=== PATIENT | female | born 1960 | race Caucasian/White ===

== ENCOUNTER 2020-02-20 12:29 | Outpatient (CLI) | payer OTHER, SELFPAY ==
--- NOTE | 2020-02-20 12:59 | MM_ITS ---
WS: [id number] BILATERAL DIGITAL SCREENING MAMMOGRAM WITH CAD CLINICAL INFORMATION: SCREENING HISTORY: Screening mammogram. No current complaints. COMPARISON: October 20, 2018 TECHNIQUE: Bilateral CC and MLO views. FINDINGS: Fatty-replaced breasts bilaterally. No suspicious focal mass, asymmetry, calcifications, or java software architect ural distortion. No evidence of malignancy. MM/[place] [id number] IMPRESSION: BI-RADS: 1-Negative FOLLOW UP: 1 Year Follow-up Recommend return to annual screening mammography.
== END 2020-02-20 12:30 | disposition home or self-care (01) ==
LOC: RADSHAW 12:36
PROVIDERS: PCP Nurse Practitioner; Visit Provider Nurse Practitioner
DX: Z12.31 Encounter for screening mammogram for malignant neoplasm of breast (principal)
CPT/HCPCS: 77067

== ENCOUNTER 2021-02-19 13:45 | Outpatient (CLI) | payer OTHER, SELFPAY ==
--- NOTE | 2021-02-19 14:00 | MM_ITS ---
WS: [id number] BILATERAL DIGITAL SCREENING MAMMOGRAM WITH CAD CLINICAL INFORMATION: SCREENING HISTORY: Screening mammogram. No current complaints. COMPARISON: February 20, 2020 TECHNIQUE: Bilateral CC and MLO views. FINDINGS: Fatty-replaced breasts bilaterally. No suspicious focal mass, asymmetry, calcifications, or architectural modeler ural distortion. No evidence of malignancy. A few punctate calcifications left breast. MM/[place] [id number] IMPRESSION: BI-RADS: 2-Benign FOLLOW UP: 1 Year Follow-up Recommend return to annual screening mammography.
== END 2021-02-19 13:46 | disposition home or self-care (01) ==
LOC: RADSHAW 13:54
PROVIDERS: PCP Nurse Practitioner; Visit Provider Nurse Practitioner
DX: Z12.31 Encounter for screening mammogram for malignant neoplasm of breast (principal)
CPT/HCPCS: 77067

== ENCOUNTER 2021-03-12 11:57 | Emergency (ER) | payer SELFPAY ==
[2021-03-12 12:38] VITALS: BP 197/105; PULSE 93; RESP 20; TEMP 36.9; O2SAT 95; BMI 51.7
--- NOTE | 2021-03-12 12:49 | W.ED.ABDPA2 ---
Documented by User: ZABRINA Saul 03/12/21 16:03 HPI - Abdominal Pain General: Chief Complaint: Abdominal Pain Stated Complaint: Abdominal Pain Time Seen by Provider: 03/12/21 12:44 Source: patient and family Mode of arrival: wheelchair Limitations: no limitations History of Present Illness: HPI narrative: Patient is a nice 60-year-old female who presents to ED today with a complaint of diffuse abdominal pain that started around 8 AM this morning after she had awoke. Patient tells me all day yesterday and throughout the night she felt normal. She states since abdominal pain started she has had a total of 7 episodes of non-bloody emesis. She states she normally has a bowel movement every morning but was not able to this morning. She states upon arrival to the ED she was able to have one but stated it was looser than normal. She did not notice any bloody or dark color. She has not been running fevers. No bad food exposures. No recent antibiotic use. Previous abdominal surgeries include one section. MD elicited complaint: abdominal pain Pertinent past history: none Onset (ago): hour(s) Pain Consistency: constant Location: Diffuse Severity: severe Quality: cramping Radiation: none Migration to: no migration Exacerbating factors: nothing Relieving factors: bowel movement Associated Symptoms: Reports nausea and vomiting; Denies chills, dysuria, fever(s), hematochezia, hematemesis and melena Related Data: Patient : No Review of Systems Const: Denies: fever(s), chills, body aches, change in weight, fatigue or malaise Card: Denies: chest pain Resp: Denies: dyspnea GI: Reports: abdominal pain, nausea and vomiting; Denies: hematemesis, pain on defecation, rectal pain, rectal swelling, hematochezia or melena : Denies: flank pain or dysuria Musc: Denies: back pain Skin/Breast: Denies: rash Neuro: Denies: headache(s) [facility] ED PFSH: Medical History (Updated 03/20/21 @ 00:01 by ) HTN, goal below 140/80 Morbid obesity with BMI of 50.0-59.9, adult Surgical History (Updated 11/13/20 @ 09:22 by CLEVE Cao) History of cataract surgery left 1987 History of section 1988 Family History (Updated 11/13/20 @ 09:24 by CLEVE Cao) Mother Cancer Breast and colon Grandmother Cancer Breast Father Diabetes Heart disease Stroke Social History Smoking and tobacco status: never smoked Second hand smoke exposure: No Smoking risk assessment/counseling performed?: No Alcohol intake: never Desire information about alcohol rehabilitation?: No Counseling given: No Desire information about substance/drug rehabilitation?: No Counseling given: No Adopted: No Caregiver/support person: Yes Lives independently: No Household members: spouse Housing: House Marital status: Number of children: 2 service: No Current occupational status: employed Current occupation: Self History of recent travel: No Current gender identity: Female Physical Exam Const: COMMON NORMALS: no acute distress, patient oriented x3 and alert GENERAL APPEARANCE: cooperative and in distress (looks like she doesn't feel well) NUTRITIONAL APPEARANCE: obese morbidly obese (BMI > 51) ORIENTATION/CONSCIOUSNESS: Yes awake, Yes oriented to person, Yes oriented to place and Yes oriented to time HENMT: COMMON NORMALS: normocephalic and atraumatic HEAD & SCALP: normocephalic and atraumatic Resp: COMMON NORMALS: normal respiratory effort and clear to auscultation bilaterally AUSCULTATION: clear to auscultation bilaterally Cardio: COMMON NORMALS: regular rate and regular rhythm RATE: regular rate RHYTHM: regular rhythm GI: COMMON NORMALS: Normal to inspection, nondistended, normoactive bowel sounds present, Soft to palpation, No hepatosplenomegaly present and no masses AUSCULTATION: Yes normoactive bowel sounds PALPATION: Yes Soft to palpation, Yes Tenderness to palpation present (GI) (diffusely) and Yes No hepatosplenomegaly present OTHER: exam severely limited by body habitus Neuro: COMMON NORMALS: patient oriented x3 SENSORIUM/ORIENTATION: Yes alert, Yes oriented to person, Yes oriented to place and Yes oriented to time Skin: COMMON NORMALS: no rashes or lesions noted GENERAL SKIN EXAM: no rashes or lesions noted Course Vital Signs: Vital signs: Vital Signs Temperature 98.4 F 03/12/21 12:38 Pulse Rate 81 03/12/21 16:13 Respiratory Rate 15 03/12/21 16:13 Blood Pressure 205/113 03/12/21 16:13 Pulse Oximetry 96 03/12/21 16:13 MDM - Abdominal Pain MDM Narrative: Medical decision making narrative: Patient feels better here. She has not had any abnormal stools or vomiting throughout her visit. Labs are overall unremarkable. She does have minor elevations to her LFTs most likely consistent with a fatty liver. Gallbladder ultrasound was obtained and found to be normal. CT of her abdomen showing enteritis versus possible developing small bowel obstruction. Patient will be discharged home with nausea medications and recommendations of a clear bland liquid diet over the next 48 hours and advance as tolerated. Strict return to ED precautions were given. Case discussed with Dr. Taylor who agrees with evaluation and plan. Lab Data: Labs: Lab Results 03/12/21 03/12/21 03/12/21 Range/Units 12:50 13:32 13:35 WBC 11.1 H (4.0-10.0) 10^3/ uL RBC 4.98 (4.1-5.3) 10^6/u L Hgb 15.0 (11.5-15.3) g/dL Hct 45.0 (37.0-47.0) % MCV 90.4 (81-99) fL MCH 30.1 (28.0-34.0) pg MCHC 33.3 (30.0-36.0) g/dL RDW 13.2 (12.1-15.1) % Plt Count 208 (130-400) 10^3/c mm MPV 12.1 H (7.4-10.4) fL Neut % (Auto) 89.5 % Lymph % (Auto) 6.3 % [place] % (Auto) 3.4 % Eos % (Auto) 0.0 % Baso % (Auto) 0.5 % Neut # (Auto) 9.93 H (1.8-7.7) 10^3/u L Lymph # (Auto) 0.7 L (0.8-4.8) 10^3/u L [place] # (Auto) 0.4 (0.2-0.9) 10^3/u L Eos # (Auto) 0.0 (0.0-0.8) 10^3/u L Baso # (Auto) 0.1 (0.0-0.1) 10^3/u L Nucleated RBC % (a uto) 0 % Nucleated RBCs # 0.0 /100WBC Sodium 138 (136-145) mmol/L Potassium 3.7 (3.5-5.1) mmol/L Chloride 101 (98-107) mmol/L Carbon Dioxide 26 (22-29) mmol/L Anion Gap 14.7 (5-19) BUN 10 (8-23) mg/dL Creatinine 0.6 (0.5-0.9) mg/dL GFR Calculation 102.0 (90-130) mL/min Glucose 144 H (65-115) mg/dL Calculated Osmolal ity 288 (285-295) mOsm/k g Calcium 9.6 (8.5-10.5) mg/dL Total Bilirubin 0.6 (0.15-1.2) mg/dL AST 67 H (0-32) U/L ALT 93 H (0-33) U/L Alkaline Phosphata se 120 H (35-105) IU/L Total Protein 6.9 (6.6-8.7) g/dL Albumin 4.0 (3.5-5.2) g/dL Globulin 2.9 (1.3-4.6) g/dL Lipase 18 (13-60) U/L Urine Color Yellow (Yellow) Urine Appearance Hazy A (CLEAR) Urine pH 7 (5-7) Ur Specific Gravit y 1.010 (1.005-1.030) Urine Protein Neg (Negative) Urine Glucose (UA) Norm (Normal) Urine Ketones Negative (Negative) Urine Blood 2+ H (Negative) Urine Nitrate Negative (Negative) Urine Bilirubin Neg (Negative) Urine Urobilinogen Norm (Negative) mg/dL Ur Leukocyte Alyssa ase Trace H (Negative) Urine RBC 5-10 H (0-2) /hpf Urine WBC 0-4 H (0-5) /hpf Ur Squamous Epith Cells 0-4 H (0-5) /hpf Amorphous Sediment Not Reportable Urine Bacteria 2+ H (NONE) /hpf Imaging Data ^: US gallbladder: Radiologist's impression: [address] [id number] ReportSigned Patient: Aubrie SpearZackdawson #: [id number]: 1Acct#:[id number]/Sex: 60 / FADM Date: 03/12/21Loc: ERRoom/Bed:Attending Dr: Ordering Provider/Ordering MD: Shae Ku Date of Service: 03/12/21 Procedure(s): US gall bladder [id number] Accession Number(s): [id number] Report Number: [id number] WS: [id number] ULTRASOUND ABDOMEN LIMITED CLINICAL INFORMATION: pain; elevated LFTs COMPARISON: None. FINDINGS: Technically difficult examination due to body habitus and bowel gas Liver Size: Mild hepatomegaly Craniocaudal length: 16.5 cm. Echogenicity: Heterogeneous Surface nodularity: None. Mass (size and location): None. Bile ducts Intrahepatic ducts: Normal. Common bile duct diameter: 0.4 cm. Gallbladder Normal. Gallstones: None. Gallbladder sludge: None. Gallbladder wall thickening: None. Pericholecystic fluid: None. Sonographic Perkins sign: Absent. Pancreas Not visualized Right kidney: Normal. Hydronephrosis: None. Size: 10.4 cm x 4.6 cm x 5.2 cm. Abdominal aorta and IVC Visualized portions are normal. Ascites: None. US/US gall bladder [id number] IMPRESSION: Technically difficult examination 1. Mild hepatomegaly with diffuse fatty infiltration. 2. Normal gallbladder. 3. No hydronephrosis in right kidney. 4. No ascites. Dictated By:Lucius Gerber MDSigned By:Lucius Gerber MDSigned Date/Time:03/12/21 1522DD/ 1520 CT Abd/Pel: Radiologist's impression: [address] [id number] Scan ReportSigned Patient: Eloise Spear #: [id number]: 1960cct#:[id number]/Sex: 60 / FADM Date: 03/12/21Loc: ERRoom/Bed:Attending Dr: Ordering Provider/Ordering MD: Shae Ku Date of Service: 03/12/21 Procedure(s): CT abdomen pelvis w con* [id number] Accession Number(s): [id number] Report Number: [id number] WS: [id number] CT ABDOMEN PELVIS TECHNIQUE: Contrast-enhanced CT of the abdomen and pelvis with coronal and sagittal reformatted images. CLINICAL INFORMATION: diffuse abdominal pain; N/V/constipation COMPARISON: None. DLP: 1769.[address] scans at [facility] use at least one of these dose optimization techniques: automated exposure control; mA and/or kV adjustment per patient size (includes targeted exams where dose is matched to clinical indication); or iterative reconstruction. FINDINGS: A few prominent fluid-filled loops of small bowel in the midabdomen and right lower quadrant with a small amount of adjacent fluid and induration. A few associated air-fluid levels in normal caliber small bowel in the midabdomen with slight induration. Recommend correlation for small bowel enteritis versus developing small bowel obstruction. No evidence of high-grade obstruction. Mild hepatomegaly. Diffuse fatty infiltration of the liver. Normal gallbladder. Normal portal vein and splenic vein. Normal spleen. Normal GE junction. Fatty atrophy of the pancreas. Adrenal glands are normal. Normal renal parenchymal enhancement. No hydronephrosis. Bibasilar atelectasis. Normal caliber abdominal aorta. Mild aortic calcification. No abdominal or pelvic lymphadenopathy. Normal sigmoid colon. A few diverticuli. No evidence of acute diverticulitis. No evidence of small or large bowel obstruction. Calcified uterine fibroid. Small amount of free fluid in the pelvis. Tiny fat-containing umbilical hernia. CT/CT abdomen pelvis w con* [id number] IMPRESSION: 1. Mild diffuse fatty infiltration of the liver with mild hepatomegaly. 2. Normal gallbladder. 3. A few air-fluid levels in normal caliber small bowel in the midabdomen and right lower quadrant with slight induration. Recommend correlation for small bowel enteritis versus developing small bowel obstruction. 4. No evidence of high-grade obstruction. 5. No hydronephrosis in either kidney. 6. Small fat-containing umbilical hernia. 7. Small amount of free fluid in the pelvis. Dictated By:Lucius Gerber MDSigned By:Lucius Gerber MDSigned Date/Time:03/12/21 1535DD/ 1522 Discharge Plan Discharge Patient Disposition: Home Clinical Impression: Enteritis Condition: Stable Prescriptions: New Zofran 4 mg tablet 4 mg PO Q6H PRN (Reason: nausea and vomiting) Qty: 14 RF: 0 No Action multivitamin Tablet 1 tab PO QAM RF: 0 Aspir-81 81 mg Tablet,Delayed Release (Dr/Ec) 81 mg PO PRN RF: 0 metoprolol tartrate 100 mg tablet 100 mg PO BEDTIME RF: 0 Lasix 20 mg tablet 20 mg PO QAM RF: 0 lisinopril 40 mg tablet 40 mg PO BEDTIME RF: 0 Discharge Orders: Discharge ED (Routine); Ordered 03/12/21 Ordered By: Shae Ku Referrals: Laila Martines FNP-C [Primary Care Provider] - Patient Instructions: Bowel Obstruction (ED) Activity Restrictions/Additional Instructions: As we discussed your CT showed some inflammation to your small bowel versus a possible developing bowel obstruction. You do not have a bowel obstruction at this time however I have provided you patient instructions regarding this. As we discussed you need to do a bland liquid diet over the next 48 hours and slowly advance as tolerated. You need to return to the emergency department for severe or worsening abdominal pain, repetitive episodes of vomiting, fevers, severe diarrhea, or any other concerns you may have. Otherwise please follow-up with primary care in 3 to 5 days for reevaluation. Coding Level of Care Code ED Youth Probation Officer for Chg Fwd Exam Detailed Documented by User: Preston Taylor [place], [facility]21/21 12:29 HPI - Abdominal Pain General: Chief Complaint: Abdominal Pain Stated Complaint: Abdominal Pain Time Seen by Provider: 03/12/21 12:44 [facility] ED PFS: Medical History (Updated 03/20/21 @ 00:01 by ) HTN, goal below 140/80 Morbid obesity with BMI of 50.0-59.9, adult Surgical History (Updated 11/13/20 @ 09:22 by CLEVE Cao) History of cataract surgery left 1986 History of section 1988 Family History (Updated 11/13/20 @ 09:24 by CLEVE Cao) Mother Cancer Breast and colon Grandmother Cancer Breast Father Diabetes Heart disease Stroke Social History Smoking and tobacco status: never smoked Second hand smoke exposure: No Smoking risk assessment/counseling performed?: No Alcohol intake: never Desire information about alcohol rehabilitation?: No Counseling given: No Desire information about substance/drug rehabilitation?: No Counseling given: No Adopted: No Caregiver/support person: Yes Lives independently: No Household members: spouse Housing: House Marital status: Number of children: 2 service: No Current occupational status: employed Current occupation: Self History of recent travel: No Current gender identity: Female Course Vital Signs: Vital signs: Vital Signs Temperature 98.4 F 03/12/21 12:38 Pulse Rate 81 03/12/21 16:13 Respiratory Rate 15 03/12/21 16:13 Blood Pressure 205/113 03/12/21 16:13 Pulse Oximetry 96 03/12/21 16:13 MDM - Abdominal Pain MDM Narrative: Medical decision making narrative: Kindly review the physician's recreational assistant's note for a complete history and physical examination. I agree with her clinical findings and medical decision making. Lab Data: Labs: Lab Results 03/12/21 03/12/21 03/12/21 Range/Units 12:50 13:32 13:35 WBC 11.1 H (4.0-10.0) 10^3/ uL RBC 4.98 (4.1-5.3) 10^6/u L Hgb 15.0 (11.5-15.3) g/dL Hct 45.0 (37.0-47.0) % MCV 90.4 (81-99) fL MCH 30.1 (28.0-34.0) pg MCHC 33.3 (30.0-36.0) g/dL RDW 13.2 (12.1-15.1) % Plt Count 208 (130-400) 10^3/c mm MPV 12.1 H (7.4-10.4) fL Neut % (Auto) 89.5 % Lymph % (Auto) 6.3 % [place] % (Auto) 3.4 % Eos % (Auto) 0.0 % Baso % (Auto) 0.5 % Neut # (Auto) 9.93 H (1.8-7.7) 10^3/u L Lymph # (Auto) 0.7 L (0.8-4.8) 10^3/u L [place] # (Auto) 0.4 (0.2-0.9) 10^3/u L Eos # (Auto) 0.0 (0.0-0.8) 10^3/u L Baso # (Auto) 0.1 (0.0-0.1) 10^3/u L Nucleated RBC % (a uto) 0 % Nucleated RBCs # 0.0 /100WBC Sodium 138 (136-145) mmol/L Potassium 3.7 (3.5-5.1) mmol/L Chloride 101 (98-107) mmol/L Carbon Dioxide 26 (22-29) mmol/L Anion Gap 14.7 (5-19) BUN 10 (8-23) mg/dL Creatinine 0.6 (0.5-0.9) mg/dL GFR Calculation 102.0 (90-130) mL/min Glucose 144 H (65-115) mg/dL Calculated Osmolal ity 288 (285-295) mOsm/k g Calcium 9.6 (8.5-10.5) mg/dL Total Bilirubin 0.6 (0.15-1.2) mg/dL AST 67 H (0-32) U/L ALT 93 H (0-33) U/L Alkaline Phosphata se 120 H (35-105) IU/L Total Protein 6.9 (6.6-8.7) g/dL Albumin 4.0 (3.5-5.2) g/dL Globulin 2.9 (1.3-4.6) g/dL Lipase 18 (13-60) U/L Urine Color Yellow (Yellow) Urine Appearance Hazy A (CLEAR) Urine pH 7 (5-7) Ur Specific Gravit y 1.010 (1.005-1.030) Urine Protein Neg (Negative) Urine Glucose (UA) Norm (Normal) Urine Ketones Negative (Negative) Urine Blood 2+ H (Negative) Urine Nitrate Negative (Negative) Urine Bilirubin Neg (Negative) Urine Urobilinogen Norm (Negative) mg/dL Ur Leukocyte Alyssa ase Trace H (Negative) Urine RBC 5-10 H (0-2) /hpf Urine WBC 0-4 H (0-5) /hpf Ur Squamous Epith Cells 0-4 H (0-5) /hpf Amorphous Sediment Not Reportable Urine Bacteria 2+ H (NONE) /hpf Discharge Plan Discharge Patient Disposition: Home Clinical Impression: Enteritis Condition: Stable Prescriptions: New Zofran 4 mg tablet 4 mg PO Q6H PRN (Reason: nausea and vomiting) Qty: 14 RF: 0 No Action multivitamin Tablet 1 tab PO QAM RF: 0 Aspir-81 81 mg Tablet,Delayed Release (Dr/Ec) 81 mg PO PRN RF: 0 metoprolol tartrate 100 mg tablet 100 mg PO BEDTIME RF: 0 Lasix 20 mg tablet 20 mg PO QAM RF: 0 lisinopril 40 mg tablet 40 mg PO BEDTIME RF: 0 Discharge Orders: Discharge ED (Routine); Ordered 03/12/21 Ordered By: Shae Ku Referrals: Laila Martines, [facility] [Primary Care Provider] - Patient Instructions: Bowel Obstruction (ED) Activity Restrictions/Additional Instructions: As we discussed your CT showed some inflammation to your small bowel versus a possible developing bowel obstruction. You do not have a bowel obstruction at this time however I have provided you patient instructions regarding this. As we discussed you need to do a bland liquid diet over the next 48 hours and slowly advance as tolerated. You need to return to the emergency department for severe or worsening abdominal pain, repetitive episodes of vomiting, fevers, severe diarrhea, or any other concerns you may have. Otherwise please follow-up with primary care in 3 to 5 days for reevaluation. Coding Level of Care Code ED Youth Probation Officer for Maureen Fwd Exam Detailed
--- NOTE | 2021-03-12 12:59 | CT_ITS ---
WS: [id number] CT ABDOMEN PELVIS TECHNIQUE: Contrast-enhanced CT of the abdomen and pelvis with coronal and sagittal reformatted image s. CLINICAL INFORMATION: diffuse abdominal pain; N/V/constipation COMPARISON: None. DLP: 1769.[address] scans at [facility] use at least one of these dose optimization techniques: automat ed exposure control; mA and/or kV adjustment per patient size (includes targeted exams where dose is matched to clinical indication); or iterative reconstruction. FINDINGS: A few prominent fluid-filled loops of small bowel in the midabdomen and right lower quadran t with a small amount of adjacent fluid and induration. A few associated air-fluid levels in normal c aliber small bowel in the midabdomen with slight induration. Recommend correlation for small bowel en teritis versus developing small bowel obstruction. No evidence of high-grade obstruction. Mild hepatomegaly. Diffuse fatty infiltration of the liver. Normal gallbladder. Normal portal vein an d splenic vein. Normal spleen. Normal GE junction. Fatty atrophy of the pancreas. Adrenal glands are normal. Normal renal parenchymal enhancement. No hydronephrosis. Bibasilar atelectasis. Normal caliber abdominal aorta. Mild aortic calcification. No abdominal or pelvic lymphadenopathy. No rmal sigmoid colon. A few diverticuli. No evidence of acute diverticulitis. No evidence of small or l arge bowel obstruction. Calcified uterine fibroid. Small amount of free fluid in the pelvis. Tiny fat -containing umbilical hernia. CT/CT abdomen pelvis w con* [id number] IMPRESSION: 1. Mild diffuse fatty infiltration of the liver with mild hepatomegaly. 2. Normal gallbladder. 3. A few air-fluid levels in normal caliber small bowel in the midabdomen and right lower quadrant with slight induration. Recommend correlation for small damion wel enteritis versus developing small bowel obstruction. 4. No evidence of high-grade obstruction. 5. No hydronephrosis in either kidney. 6. Small fat-containing umbilical hernia. 7. Small amount of free fluid in the pelvis.
[2021-03-12 13:13] VITALS: BP 229/103; PULSE 88; RESP 18; O2SAT 97
[2021-03-12 13:26] LABS: Add Urine Microscopic? YES; Bacteria Urine 2+ /hpf; Bilirubin Urine Neg (Negative); Blood Urine 2+ (Negative); Glucose Urine UA Norm (Normal); Ketones Urine Negative (Negative); Leukocyte Esterase Urine Trace (Negative); Nitrate Urine Negative (Negative); Protein Urine Neg (Negative); Squamous Epithelial Cell Urine 0-4 /hpf (0-5); Urine Appearance Hazy (CLEAR); Urine Color Yellow (Yellow); Urobilinogen Urine Norm (Negative); WBC Urine 0-4 /hpf (0-5); pH Urine 7 (5-7)
[2021-03-12 13:27] LABS: Add Urine Culture? Yes
[2021-03-12 13:46] LABS: Basophils # 0.1 10^3/uL (0.0-0.1); Basophils % 0.5 %; Lymphocytes # 0.7 10^3/uL (0.8-4.8); Lymphocytes % 6.3 %; Mean Corpuscular HGB Conc 33.3 g/dL (30.0-36.0); Mean Corpuscular Hemoglobin 30.1 pg (28.0-34.0); Mean Corpuscular Volume 90.4 fL (81-99); Mean Platelet Volume 12.1 fL (7.4-10.4); Monocytes # 0.4 10^3/uL (0.2-0.9); Monocytes % 3.4 %; Neutrophils # 9.93 10^3/uL (1.8-7.7); Neutrophils % 89.5 %; Nucleated Red Blood Cells % 0 %; Platelet Count 208 10^3/cmm (130-400); Red Blood Count 4.98 10^6/uL (4.1-5.3); Red Cell Distribution Width 13.2 % (12.1-15.1); White Blood Count 11.1 10^3/uL (4.0-10.0)
[2021-03-12] MEDS: ondansetron 2 mg/ML SDV 2 mL 4 MG IVP (13:52)
[2021-03-12] MEDS: morphine 4 mg/mL SDV 1 mL IVP (13:56)
[2021-03-12 14:04] LABS: Alanine Aminotransferase 93 U/L (0-33); Alkaline Phosphatase 120 IU/L (35-105); Anion Gap 14.7 (5-19); Aspartate Amino Transferase 67 U/L (0-32); Blood Urea Nitrogen 10 mg/dL (8-23); Calcium 9.6 mg/dL (8.5-10.5); Carbon Dioxide 26 mmol/L (22-29); Chloride 101 mmol/L (98-107); Globulin 2.9 g/dL (1.3-4.6); Glucose 144 mg/dL (65-115); Lipase 18 U/L (13-60); Osmolality Calculated 288 mOsm/kg (285-295); Potassium 3.7 mmol/L (3.5-5.1); Sodium 138 mmol/L (136-145); Total Bilirubin 0.6 mg/dL (0.15-1.2); Total Protein 6.9 g/dL (6.6-8.7)
[2021-03-12 14:16] VITALS: BP 165/75; PULSE 82; O2SAT 96
--- NOTE | 2021-03-12 14:17 | US_ITS ---
WS: [id number] ULTRASOUND ABDOMEN LIMITED CLINICAL INFORMATION: pain; elevated LFTs COMPARISON: None. FINDINGS: Technically difficult examination due to body habitus and bowel gas Liver Size: Mild hepatomegaly Craniocaudal length: 16.5 cm. Echogenicity: Heterogeneous Surface nodularity: None. Mass (size and location): None. Bile ducts Intrahepatic ducts: Normal. Common bile duct diameter: 0.4 cm. Gallbladder Normal. Gallstones: None. Gallbladder sludge: None. Gallbladder wall thickening: None. Pericholecystic fluid: None. Sonographic Perkins sign: Absent. Pancreas Not visualized Right kidney: Normal. Hydronephrosis: None. Size: 10.4 cm x 4.6 cm x 5.2 cm. Abdominal aorta and IVC Visualized portions are normal. Ascites: None. US/US gall bladder [id number] IMPRESSION: Technically difficult examination 1. Mild hepatomegaly with diffuse fatty infiltration. 2. Normal gallbladder. 3. No hydronephrosis in right kidney. 4. No ascites.
--- NOTE | 2021-03-12 14:33 | PC.NURSE ---
Discussed patient's blood pressure with provider. Orders received to hold on the blood pressure medicine, and to take every thirty minutes for a few, and if the pressures are about the same, vitals can go to hourly.
[2021-03-12 14:52] VITALS: BP 164/81
[2021-03-12] MEDS: iohexol 300 mg/mL 100 mL Btl IV (15:09)
[2021-03-12 16:13] VITALS: BP 205/113; PULSE 81; RESP 15; O2SAT 96
--- NOTE | 2021-03-12 16:13 | PC.NURSE ---
Notified provider of discharge vital signs. Orders received that patient may be discharged, as blood pressure is due to patient not taking her blood pressure medication today. Patient reported she would take her medication once she got home.
== END 2021-03-12 16:15 | disposition home or self-care (01) ==
PROVIDERS: Emergency Provider Physician Assistant; PCP Nurse Practitioner
DX: K52.9 Noninfective gastroenteritis and colitis, unspecified (principal); I10 Essential (primary) hypertension; E66.01 Morbid (severe) obesity due to excess calories; Z68.43 Body mass index [BMI] 50.0-59.9, adult
CPT/HCPCS: 74177; 76705; 80053; 81001; 83690; 85025; 87077; 87086; 87186; 96374; 96375; 99284; J2270; J2405; Q9967

== ENCOUNTER 2021-12-08 11:47 | Outpatient (CLI) | payer SELFPAY ==
--- NOTE | 2021-12-08 12:06 | MM_ITS ---
WS: [id number] VIEWS: MLO, CC, and ML views both breasts. 3D digital tomosynthesis is also included in this exam. Comparison made with prior exam of 10/12/2017, 10/20/2018, 02/20/2020 and 02/19/2021. Findings: There was no sign of mass, architectural distortion or suspicious calcification in either breast. Fa tty. Regional ultrasound of the right breast is recommended for further workup. MM/[place] [id number] Impression: BI-RADS: 0-Incomplete: Need additional imaging evaluation FOLLOW-UP: Need Additional Imaging This mammogram was also analyzed by the Computer Aided Detection System R2 Imag e Garment Fitter.
--- NOTE | 2021-12-08 12:10 | US_ITS ---
WS: [id number] Exam: US breast RT limited* [id number] Date/Time of Exam: 12/08/2021 1:26 PM Reason For Exam: BREAST LUMP 2CM RT NIPPLE Regional ultrasound was performed at the 10:00 to 12:00 position in the right breast as well as the r ight axilla. There was no sign of suspicious solid mass or nodule within these areas. No cysts were identified. Sm all unremarkable appearing lymph nodes in the right axilla. Recommendations: Continue yearly screening mammography. US/US breast RT limited* [id number] IMPRESSION: 1. No suspicious ultrasound findings. BI-RADS Category 2.
== END 2021-12-08 11:48 | disposition home or self-care (01) ==
PROVIDERS: PCP Nurse Practitioner; Visit Provider Nurse Practitioner
DX: N63.0 Unspecified lump in unspecified breast (principal)
CPT/HCPCS: 76642; 77062

== ENCOUNTER 2022-12-11 09:40 | Outpatient (CLI) | payer OTHER, SELFPAY ==
--- NOTE | 2022-12-11 10:13 | MM_ITS ---
WS: [id number] SCREENING DIGITAL TOMOSYNTHESIS MAMMOGRAM WITH CAD HISTORY: SCREENING COMPARISON: 12/08/2021, 02/19/2021 Bilateral CC and MLO with tomosynthesis views submitted. Synthetic mammography reviewed. Computer aid ed detection analyzed. Breast composition: The breasts are almost entirely fatty. No suspicious masses, microcalcifications or architectural distortion. A few scattered benign calcifications in each breast. MM/[place] [id number] IMPRESSION: BI-RADS: 2-Benign FOLLOW UP: 1 Year Follow-up
== END 2022-12-11 09:41 | disposition home or self-care (01) ==
PROVIDERS: PCP Nurse Practitioner; Visit Provider Nurse Practitioner
DX: Z12.31 Encounter for screening mammogram for malignant neoplasm of breast (principal)
CPT/HCPCS: 77063; 77067

== ENCOUNTER 2023-12-28 09:47 | Outpatient (CLI) | payer OTHER, SELFPAY ==
--- NOTE | 2023-12-28 10:00 | MM_ITS ---
WS: [id number] Bilateral screening 3D tomosynthesis digital mammogram, 12/28/2023 Clinical Data: SCREENING Comparison: 12/11/2022, 12/08/2021, 02/19/2021, 02/20/2020, 10/20/2018, 10/12/2017, 08/12/2016, 08/05/2015, 08/02/2014, 05/25/2012, 05/21/2011, 03/17/2010. Whole Findings: The breast parenchymal pattern shows fat replacement. No spiculated masses or clustered calcification s are seen. There are no secondary signs of carcinoma. There are mole markers in both axilla. MM/[place] [id number] Impression: 1. Negative bilateral mammogram unchanged. 2. Recommend annual screening mammograms. BIRADS: 1-Negative FOLLOW UP: 1 Year Follow-up The CAD electric distribution checker was used.
== END 2023-12-28 09:48 | disposition home or self-care (01) ==
LOC: MOBLMAM 09:50
PROVIDERS: PCP Nurse Practitioner; Visit Provider Nurse Practitioner
DX: Z12.31 Encounter for screening mammogram for malignant neoplasm of breast (principal)
CPT/HCPCS: 77063; 77067

== ENCOUNTER 2025-04-05 18:04 | Outpatient (CLI) | payer OTHER, SELFPAY ==
--- NOTE | 2025-04-05 15:40 | MM_ITS ---
WS: [id number] BILATERAL SCREENING DIGITAL TOMOSYNTHESIS MAMMOGRAM WITH CAD HISTORY: SCREENING COMPARISON: 12/28/2023, 12/11/2022 Bilateral CC and MLO views with tomosynthesis and synthetic mammography submitted. Computer aided detection analyzed. Breast composition: The breasts are almost entirely fatty. No suspicious masses, microcalcifications or architectural distortion. Benign calcifications in each breast. MM/MM scr BI tomosynthesis [id number] IMPRESSION: BI-RADS: 2 - Benign. FOLLOW UP: 1 Year Follow-up
== END 2025-04-05 18:05 | disposition home or self-care (01) ==
LOC: MOBLMAM 18:05
PROVIDERS: PCP Nurse Practitioner; Visit Provider Nurse Practitioner
DX: Z12.31 Encounter for screening mammogram for malignant neoplasm of breast (principal); R92.313 Mammographic fatty tissue density, bilateral breasts; R92.1 Mammographic calcification found on diagnostic imaging of breast
CPT/HCPCS: 77063; 77067